=== PATIENT | male | born 1985 | race Caucasian/White ===

== ENCOUNTER 2017-06-14 00:49 | Emergency (ER) | payer OTHER ==
[2017-06-14 01:19] LABS: #Basophils 0.1 thou/uL (0.0-0.2); #Eosinphils 0.1 thou/uL (0.0-0.7); #Lymphocytes 2.5 thou/uL (1.20-3.40); #Monocytes 0.5 thou/uL (0.11-0.59); %Basophils 0.7 % (0.0-1.0); %Monocytes 5.9 % (0.0-10.0); Hematocrit 47.5 % (42.0-52.0); Mean Platelet Volume 7.6 fL (7.4-10.4); Red Blood Cell (RBC) Count 5.18 mill/uL (4.70-6.10); White Blood Cell (WBC) Count 9.1 thou/uL (4.8-10.8)
[2017-06-14 01:45] LABS: ALT (SGPT) 19 U/L (8-55); AST (SGOT) 22 U/L (5-34); Acetaminophen Less than 6.0 mcg/mL (10.0-30.0); Alkaline Phosphatase 40 U/L (40-150); Anion Gap 12 mmol/L (10-20); BUN (Urea Nitrogen) 10 mg/dL (8.9-20.6); Bilirubin, Total 0.4 mg/dL (0.2-1.2); CK (CPK) 134 U/L (30-200); Calc. Creatinine Clearance 0 mL/min (70-130); Calcium 8.7 mg/dL (7.8-10.44); Carbon Dioxide 23 mmol/L (22-29); Chloride 106 mmol/L (98-107); Estimated GFR-MDRD Greater than 90; Globulin 2.1 g/dL (2.4-3.5); Protein, Total 5.9 g/dL (6.0-8.3); Salicylate Less than 8.0 mg/dL (15.0-30.0)
[2017-06-14] MEDS ORDERED: Multivitamins, Adult 10 ML, Thiamine HCl 100 MG, Folic Acid 1 MG in Dextrose 5 %-0.45 %... IV SCH ×4 (02:00)
[2017-06-14 02:44] LABS: Bilirubin Negative (Negative); Blood, Urine Negative (Negative); Glucose, Urine (Dipstick) Negative (Negative); Ketone, Urine Negative (Negative); Nitrite Negative (Negative); Protein, Urine (Dipstick) Negative (Neg-Trace); Urobilinogen 0.2 mg/dL (0.2-1.0)
[2017-06-14 02:55] LABS: Amphetamine Not Detected (NotDetected); Methadone Not Detected (NotDetected); Methamphetamine Not Detected (NotDetected)
== END 2017-06-14 10:30 | disposition home or self-care (01) ==
LOC: ERS 00:49
DX: F10.129 Alcohol abuse with intoxication, unspecified (principal); I25.2 Old myocardial infarction; F41.9 Anxiety disorder, unspecified; F90.9 Attention-deficit hyperactivity disorder, unspecified type; F31.9 Bipolar disorder, unspecified; F43.10 Post-traumatic stress disorder, unspecified; F17.210 Nicotine dependence, cigarettes, uncomplicated; Z79.899 Other long term (current) drug therapy; Y90.8 Blood alcohol level of 240 mg/100 ml or more
CPT/HCPCS: 36415; 80053; 80306; 80307; 81003; 82550; 84443; 85025; 94760; 96365; 96366; 99406; J3411; J7042

== ENCOUNTER 2017-09-28 09:55 | Observation (INO) | payer OTHER ==
[2017-09-28 10:25] LABS: #Basophils 0.1 thou/uL (0.0-0.2); #Eosinphils 0.1 thou/uL (0.0-0.7); #Lymphocytes 2.4 thou/uL (1.20-3.40); #Monocytes 0.4 thou/uL (0.11-0.59); #Neutrophils 4.2 thou/uL (1.40-6.50); %Eosinophils 1.7 % (0.0-10.0); %Lymphocytes 33.7 % (21.0-51.0); %Neutrophils 58.6 % (42.0-75.0); Hemoglobin 14.8 g/dL (14.0-18.0); Mean Corpuscular HGB CONC 33.6 g/dL (32.0-36.0); Mean Corpuscular Hemoglobin 31.7 pg (27.0-31.0); Mean Corpuscular Volume 94.4 fl (80.0-94.0); Mean Platelet Volume 7.4 fL (7.4-10.4); Platelet Count 243 thou/uL (130-400); RBC Distribution Width 12.3 % (11.5-14.5); Red Blood Cell (RBC) Count 4.65 mill/uL (4.70-6.10); White Blood Cell (WBC) Count 7.1 thou/uL (4.8-10.8)
[2017-09-28 10:48] LABS: ALT (SGPT) 14 U/L (8-55); AST (SGOT) 21 U/L (5-34); Acetaminophen Less than 6.0 mcg/mL (10.0-30.0); Albumin 3.8 g/dL (3.5-5.0); Alcohol Less than 10 mg/dL (Less than 10); Alkaline Phosphatase 60 U/L (40-150); Anion Gap 12 mmol/L (10-20); BUN (Urea Nitrogen) 8 mg/dL (8.9-20.6); Bilirubin, Total 0.8 mg/dL (0.2-1.2); Calc. Creatinine Clearance 0 mL/min (70-130); Carbon Dioxide 27 mmol/L (22-29); Chloride 107 mmol/L (98-107); Estimated GFR-MDRD Greater than 90; Globulin 2.7 g/dL (2.4-3.5); Glucose 94 mg/dL (70-105); Potassium 3.9 mmol/L (3.5-5.1); Protein, Total 6.5 g/dL (6.0-8.3); Salicylate Less than 8.0 mg/dL (15.0-30.0); Sodium 142 mmol/L (136-145)
[2017-09-28 12:24] LABS: Amphetamine Not Detected (NotDetected); Benzodiazepine Screen Detected (NotDetected); Cocaine Metabolite Screen Detected (NotDetected); Medtox Reader # READER 1; Methamphetamine Detected (NotDetected); Opiate Screen Not Detected (NotDetected); Phencyclidine (PCP) Not Detected (NotDetected); THC/Cannabinoid Screen Not Detected (NotDetected)
[2017-09-28 12:25] LABS: Barbiturates Screen Not Detected (NotDetected); Medtox Control Line Valid? VALID (VALID); Methadone Not Detected (NotDetected); Oxycodone Screen Not Detected (NotDetected); Tricyclic Screen Not Detected (NotDetected)
[2017-09-28] MEDS ORDERED: Ondansetron HCl/PF 4 MG/2 ML Vial IVP PRN ×2 (15:58→16:10)
[2017-09-28] MEDS ORDERED: Ondansetron ODT 4 MG TAB SL PRN (15:58)
[2017-09-28] MEDS ORDERED: Acetaminophen 325 MG TAB PO PRN (15:58)
[2017-09-28] MEDS ORDERED: Dextrose 5 %-0.45 % NaCl 1,000 ML IV SCH (16:00)
[2017-09-28] MEDS ORDERED: Bisacodyl 10 MG SUPP PR PRN (16:10)
[2017-09-28] MEDS ORDERED: Acetaminophen 650 MG Suppository PR PRN (16:10)
[2017-09-28] MEDS ORDERED: Ondansetron ODT 4 MG TAB PO PRN (16:10)
[2017-09-28] MEDS ORDERED: Lorazepam 2 MG/ML VIAL SLOW IVP PRN ×2 (16:13)
[2017-09-28 17:01] VITALS: BMI 22.7
[2017-09-28] MEDS ORDERED: Multivitamins, Adult 10 ML, Thiamine HCl 100 MG, Folic Acid 1 MG in Dextrose 5 %-0.45 %... IV SCH (18:00)
[2017-09-28] MEDS: Famotidine 20 MG TAB PO SCH (23:35)
[2017-09-28] MEDS: Docusate 100 MG CAP PO SCH (23:35)
[2017-09-29] MEDS ORDERED: Dextrose 5 %-0.45 % NaCl 1,000 ML IV SCH (02:00)
--- NOTE | 2017-09-29 06:55 | HP-2 ---
DATE OF ENCOUNTER: 09/28/2017 TIME OF ENCOUNTER: 1453 hours. ATTENDING: Rudy Medley MD PRIMARY CARE PHYSICIAN: None. [facility]. CHIEF COMPLAINT: Seizure, neck pain, and ear pain. HISTORY OF PRESENT ILLNESS: A 32-year-old male with past medical history difficult to obtain due to patient's somnolence and altered mental status; however, by review of records, the patient has a history of depression, anxiety, and alcohol abuse. He was brought to the ED after EMS picked him up from home after a supposed intentional overdose that had been occurring over the last 2 days prior to arrival. Per EMS report, patient had suicidal ideation ; however, this was unable to be confirmed during the time of my encounter due to the patient's somnolence. Per EMS, the patient was found to have multiple pill bottles surrounding him when he was found down at home including bottle of Xanax, Zyprexa, fluoxetine, BuSpar, olanzapine, and naltrexone. 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 The patient is oriented to self and place, but is not able to contribute any history to his medical conditions at this time. In the ED, the patient was given 2 liters normal saline and continuous monitoring, but after 5 hours was not noted to be arousable. PAST MEDICAL HISTORY: Significant for alcohol abuse status post DT and prior intubation. PAST SURGICAL HISTORY: Unable to obtain. MEDICATIONS: None. ALLERGIES: Per prior history, MORPHINE. SOCIAL HISTORY: Includes excessive alcohol intake per history as well as cocaine, methamphetamine, and marijuana abuse as well as prescription drug abuse and occasional tobacco use. REVIEW OF SYSTEMS: Unable to be performed due to patient's altered mental status. PHYSICAL EXAMINATION: VITAL SIGNS: T-max 97.8, respirations 16, heart rate 78, blood pressure 102/72 , O2 sat 100% on room air, weight 73 kilograms. GENERAL: No acute distress, asleep, very difficult to arouse and oriented x2. EYES: Pupils are constricted, but equally reactive and sluggish. Conjunctivae are nonicteric. ENT: He has dry mucous membranes. CARDIOVASCULAR: Regular rate and rhythm. No murmurs or gallops noted. Pulses are equal in all extremities. Respiratory status, nonlabored. LUNGS: Clear to auscultation bilaterally. ABDOMEN: Soft, nontender, nondistended. EXTREMITIES: No edema, no cyanosis. SKIN: Shows no rashes, ulcers, or lesions. NEUROLOGIC: No obvious focal deficits; however, the patient is somnolent but arousable. GCS of 12, E2, V5, M5. PSYCHIATRIC: Inappropriate due to poor judgment and insight. LABORATORY DATA: CBC: White blood cells 7.1, hemoglobin 14.8, hematocrit 43.9 , MCV 94.4, platelets 243. CMP: Sodium 142, potassium 3.9, chloride 107, bicarbonate 27, BUN 8, creatinine 0.92, glucose 94. GFR greater than 90. Calcium 9, protein 6.5, albumin 3.8, bilirubin 0.8, AST 21, ALT 14, alkaline phosphatase 60. UDS significant for positive cocaine, methamphetamine, and benzodiazepines. Serum drug screen is negative for alcohol, acetaminophen, or salicylate. Magnesium 2.2. IMAGING: EKG shows normal sinus rhythm with a QTc of 444. Chest x-ray is none performed. ASSESSMENT AND PLAN: A 32-year-old male with past medical history significant for depression and alcohol abuse who presents with: 1. Acute toxic encephalopathy. UDS positive for polysubstance abuse as well as history of psych medication overdose. Therefore, we will continue to monitor with continued somnolence and we would continue to monitor the patient on telemetry and observe him overnight. We will repeat EKG in the morning to ensure no further QT prolongation, also check an a.m. mag as well as electrolytes to ensure these remained stable. N.p.o. at this time pending. The patient awakening more as well as will need to pass the dysphagia screen. Here the patient had some IV fluids of D5 half NS at 125 after rebolused a banana bag. 2. Suicidal ideation. After patient is medically cleared, we will consult an [facility] for likely placement. Continue the patient on suicide precautions at this time. 3. Alcohol abuse. Place the patient on ASE protocol. We will not initiate any schedule benzodiazepines at this time given patient's current somnolent as well as UDS positive for benzos; however, we will have p.r.n. Ativan available for seizures. 4. Depression, likely contributing to the above. Pending likely placement. 5. Polysubstance abuse, counseled regarding cessation likely contributing to all the above. 6. Tobacco abuse, counseled regarding cessation, offer nicotine transdermal patch. 7. Status: OBS. Anticipate 1-day hospital stay with likely transfer to psychiatric unit upon becoming medically cleared. History and physical as well as management were discussed with the attending, Dr. Medley who agrees with the above assessment and plan. ASHISH
--- NOTE | 2017-09-29 07:33 | PDOC.FM ---
- Subjective Subjective: Pt arousable. Does not respond to questions very well. No acute concerns at this time. Pt sleeping and resting. Pt denies any chest pain, sob. Denies any fever or chills. Tyson any muscle pain or cramps. no acute concerns at this time. - Objective MAR Reviewed: Yes Vital Signs & Weight: Vital Signs (12 hours) Temp Pulse Resp BP BP Pulse Ox 09/29/17 04:00 97.4 F L 86 20 100/54 L 100/54 L 94 L 09/29/17 00:30 92/64 09/29/17 00:00 96.8 F L 84 20 92/64 98 09/28/17 19:35 102/63 Weight Weight 76.839 kg I&O: 09/28/17 09/29/17 09/30/17 06:59 06:59 06:59 Intake Total 1228 Output Total 1000 Balance 228 Result Diagrams: 09/28/17 10:18 09/28/17 10:18 <Don Holbrook - Last Filed: 09/29/17 07:29> - Objective Vital Signs & Weight: Vital Signs (12 hours) Temp Pulse Resp BP BP Pulse Ox 09/29/17 04:00 97.4 F L 86 20 100/54 L 100/54 L 94 L 09/29/17 00:30 92/64 09/29/17 00:00 96.8 F L 84 20 92/64 98 Weight Weight 169 lb 6.4 oz I&O: 09/28/17 09/29/17 09/30/17 06:59 06:59 06:59 Intake Total 1228 Output Total 1000 Balance 228 Result Diagrams: 09/28/17 10:18 09/28/17 10:18 <Rudy Medley - Last Filed: 09/29/17 09:37> Phys Exam - Physical Examination Constitutional: NAD HEENT: PERRLA, moist MMs Neck: no nodes, supple, full ROM Respiratory: no wheezing, no rales, no rhonchi Cardiovascular: RRR, no significant murmur, no rub Gastrointestinal: soft, non-tender, no distention, positive bowel sounds Musculoskeletal: no edema, pulses present Neurological: non-focal, normal sensation, moves all 4 limbs Lymphatic: no nodes Skin: no rash, normal turgor, cap refill <2 seconds <Don Holbrook - Last Filed: 09/29/17 07:29> Dx/Plan (1) Encephalopathy Code(s): G93.40 - ENCEPHALOPATHY, UNSPECIFIED Status: Acute (2) Suicidal ideation Code(s): R45.851 - SUICIDAL IDEATIONS Status: Acute (3) Polysubstance abuse Code(s): F19.10 - OTHER PSYCHOACTIVE SUBSTANCE ABUSE, UNCOMPLICATED Status: Acute (4) Tobacco abuse Code(s): Z72.0 - TOBACCO USE Status: Acute (5) Alcohol abuse Code(s): F10.10 - ALCOHOL ABUSE, UNCOMPLICATED Status: Acute - Plan Plan: Acute Toxic encephalopathy -UDS positive for polysubstance abuse and recently had an intentional suicide attempt with psych medication overdose. Found to have multiple pill bottles surrounding him with xanax, zyprexa, fluoxetine, buspar olanzapine and naltrexone -Vital signs have been stable -On telemetry monitoring. Monitoring for prolonged QT -Awakeing. On IV fluids for now Suicidal Ideation -MHMR consult once medically cleared. Has sitter now Alcohol Abuse -ASE protocol. Will not give benzos as pt is somnolent -Ativan for seizures Depression -MHMR consult Polysubstance Abuse -counseled on effects and need to quit Tobacco abuse -Nicotine patch PRN -Counselled on cessation <Don Holbrook - Last Filed: 09/29/17 07:29> Attending Addendum - Attending Addendum I personally evaluated the patient and discussed the management with Dr. Holbrook I agree with the History, Examination, Assessment and Plan documented above. Repeated EKG. Will get patient up and moving and eat breakfast. Once he seems to be doing fine will consult [facility]MR once medically cleared for assessment. <Rudy Medley - Last Filed: 09/29/17 09:37>
[2017-09-29] MEDS ORDERED: FLU VACC QS2017-18 36 mo. & older 0.5 ML SYRINGE IM ONE (09:00)
[2017-09-29] MEDS: Docusate 100 MG CAP PO SCH ×2 (09:25→20:50)
[2017-09-29] MEDS: Famotidine 20 MG TAB PO SCH ×2 (09:25→20:50)
[2017-09-29 10:05] LABS: Anion Gap 12 mmol/L (10-20); BUN (Urea Nitrogen) 7 mg/dL (8.9-20.6); Calc. Creatinine Clearance 134 mL/min (70-130); Calcium 8.9 mg/dL (7.8-10.44); Carbon Dioxide 26 mmol/L (22-29); Chloride 108 mmol/L (98-107); Estimated GFR-MDRD Greater than 90; Glucose 82 mg/dL (70-105); Magnesium 1.9 mg/dL (1.6-2.6); Potassium 3.8 mmol/L (3.5-5.1); Sodium 142 mmol/L (136-145)
--- NOTE | 2017-09-29 10:21 | RAD ---
CHEST 1 VIEW: HISTORY: Dyspnea. COMPARISON: 05/14/16. FINDINGS: Cardiac silhouette is magnified by projection. Pulmonary vasculature is unremarkable. There is mini mal bibasilar atelectasis. There is no lobar consolidation or evidence of pneumothorax. Cardiac mon itor leads overlie the chest. IMPRESSION: No active cardiopulmonary abnormalities are demonstrated. POS: [facility]
--- NOTE | 2017-09-29 13:06 | PDOC.EVN ---
Event Note - Event Note Event Note: Patient has done well. Magnesium, Potassium, kidneys and liver normal. CXR no acute process. EKG repeat had QTc <450 and there was no QT prolongation noted on telemetry during his stay and no seizures. His BP has remained stable, likely his normal BP as he is small. Patient AOx4. Comfortable. Discussed with poison control. OK for medical clearance. Will consult [facility].
--- NOTE | 2017-09-30 06:06 | PDOC.FM ---
- Subjective Subjective: Pt is alert and orientedx4. Answers questions appropriately. No sign of confusion or lethargy at this time. Denies any acute events overnight. Denies any chest pain SOB. Says he hasn't been up walking yet nely he is naked. - Objective MAR Reviewed: Yes Vital Signs & Weight: Vital Signs (12 hours) Temp Pulse Resp BP BP Pulse Ox 09/30/17 04:00 97.8 F 62 18 99/58 L 99/58 L 98 09/29/17 19:30 97.4 F L 92 16 106/57 L 106/57 L 96 Weight Weight 76.657 kg I&O: 09/28/17 09/29/17 09/30/17 06:59 06:59 06:59 Intake Total 1228 Output Total 1000 Balance 228 Result Diagrams: 09/28/17 10:18 09/29/17 09:35 EKG Reviewed by me: Yes <Don Holbrook - Last Filed: 09/30/17 08:23> - Objective Vital Signs & Weight: Vital Signs (12 hours) Temp Pulse Resp BP BP Pulse Ox 09/30/17 12:00 99 F 78 16 104/56 L 104/56 L 95 09/30/17 10:25 98 F 87 14 109/76 09/30/17 08:00 98 F 87 14 109/76 95 09/30/17 07:50 98.3 F 87 14 109/76 95 Weight Weight 76.657 kg I&O: 09/29/17 09/30/17 10/01/17 06:59 06:59 06:59 Intake Total 1228 960 Output Total 1000 700 Balance 228 260 Result Diagrams: 09/28/17 10:18 09/29/17 09:35 <Ameena Tiwari - Last Filed: 09/30/17 16:54> Phys Exam - Physical Examination Constitutional: NAD HEENT: PERRLA, moist MMs Neck: no nodes, supple, full ROM Respiratory: no wheezing, no rales, no rhonchi, clear to auscultation bilateral Cardiovascular: RRR, no significant murmur, no rub Gastrointestinal: soft, non-tender, no distention, positive bowel sounds Musculoskeletal: no edema, pulses present Neurological: non-focal, normal sensation, moves all 4 limbs Lymphatic: no nodes Psychiatric: normal affect, A&O x 3 Skin: no rash, normal turgor, cap refill <2 seconds <Don Holbrook - Last Filed: 09/30/17 08:23> Dx/Plan (1) Encephalopathy Code(s): G93.40 - ENCEPHALOPATHY, UNSPECIFIED Status: Acute (2) Suicidal ideation Code(s): R45.851 - SUICIDAL IDEATIONS Status: Acute (3) Polysubstance abuse Code(s): F19.10 - OTHER PSYCHOACTIVE SUBSTANCE ABUSE, UNCOMPLICATED Status: Acute (4) Tobacco abuse Code(s): Z72.0 - TOBACCO USE Status: Acute (5) Alcohol abuse Code(s): F10.10 - ALCOHOL ABUSE, UNCOMPLICATED Status: Acute - Plan Plan: cute Toxic encephalopathy -UDS positive for polysubstance abuse and recently had an intentional suicide attempt with psych medication overdose. Found to have multiple pill bottles surrounding him with xanax, zyprexa, fluoxetine, buspar olanzapine and naltrexone -Vital signs have been stable -On telemetry monitoring. Monitoring for prolonged QT. None seen at this time -Awakeing. -Tolerating PO Suicidal Ideation -MHMR consult once medically cleared. Has sitter now Alcohol Abuse -ASE protocol. Will not give benzos as pt is somnolent -Ativan for seizures Depression -MHMR consult Polysubstance Abuse -counseled on effects and need to quit Tobacco abuse -Nicotine patch PRN -Counselled on cessation <Don Holbrook - Last Filed: 09/30/17 08:23> Attending Addendum - Attending Addendum I personally evaluated the patient and discussed the management with Dr. Holbrook. I agree with the History, Examination, Assessment and Plan documented above with any addition or exceptions noted below. The patient is doing well. Will get re-evaluated by MHMR and likely discharge home. <Ameena Tiwari - Last Filed: 09/30/17 16:54>
[2017-09-30 12:21] VITALS: BP 104/56
[2017-09-30 12:22] VITALS: TEMP 99
--- NOTE | 2017-10-01 09:30 | DIS-2 ---
DATE OF ADMISSION: 09/28/2017 DATE OF DISCHARGE: 09/30/2017 ADMITTING ATTENDING: Rudy Medley M.D. DISCHARGE ATTENDING: Ameena Tiwari M.D. RESIDENT: Don Holbrook, PGY-1 CONSULTATIONS: None. PROCEDURES: None. Had a chest x-ray, which showed no active cardiopulmonary abnormalities demonstrated. PRIMARY DIAGNOSES: 1. Acute toxic encephalopathy. 2. Suicidal ideation. 3. Alcohol abuse. 4. Depression. 5. Polysubstance abuse. 6. Tobacco abuse. DISCHARGE MEDICATIONS: We did not send him home on any of his medications. We did not continue any of his medications as he tried using them for suicide attempt, which led to his admission. HISTORY OF PRESENT ILLNESS AND BRIEF HOSPITAL COURSE: This is a 32-year-old male with a past medical history little difficult to obtain on admission due to somnolence. He was found down with multiple pill bottles of Xanax, Zyprexa, fluoxetine, BuSpar, olanzapine, and naltrexone. We called Poison Control. 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 His initial EKG overnight showed a QT of 472. He never was hypotensive, never in seizures. He checked his labs. Labs were normal. His magnesium was 2.2, would trend down to 1.9 the next day. No other lab abnormalities are noted. We did do a urine drug screen, which was positive for meth, benzodiazepines and cocaine. Plasma alcohol level was less than 10. At this time, we admitted him for observation. He was very tired. We continued to monitor him until the next day until he is medically cleared. Repeat EKG showed a normal QT. He is alert and oriented x3. We consulted [facility]. At that time, they medically cleared him, but it is difficult for him to answer questions, so they mentioned that maybe he was still tired. I think it was due to him just being a punk and not answering questions, so at this time, we kept him to monitor and [facility] one time to see him on Saturday. At this time, we checked him again, he was alert and oriented x3 when I saw him, answering questions appropriately. He did not show any signs of depression or anything. We called Poison Control. They cleared him. We consulted [facility] one time to see him. At this time, he started to be a little bit tricky. He called his mother and said that he was allowed to be discharged , and I had never seen him and told him that he could be discharged. I told him he could not be discharged until [facility] had seen him. His mother came up and at this time, he told the sitter in the room which he had the whole time that he was leaving [facility] as [facility] had cleared him the day before and he was exercising his rights and at this time he left [place]. DISPOSITION: Stable. DISCHARGE INSTRUCTIONS: 1. Location: AMA, home. 2. Activity: As tolerated. 3. Diet: Regular diet. 3. Followup: Will need to follow up with his primary care physician and counseling to get started on his psych medications. ASHISH
--- NOTE | 2017-10-05 18:04 | EKG ---
Test Reason : OD Blood Pressure : / mmHG Vent. Rate : 079 BPM Atrial Rate : 079 BPM P-R Int : 128 ms QRS Dur : 098 ms QT Int : 388 ms P-R-T Axes : 022 061 029 degrees QTc Int : 444 ms Normal sinus rhythm Normal ECG Confirmed by LISETTE ROSENBERG, RITA ([id number]), loan expeditor GIULIANO VYAS ([id number]) on 10/05/2017 6:03:23 PM Referred By: Confirmed By:RITA KNOX MD
--- NOTE | 2017-12-01 08:36 | EKG ---
Test Reason : ROUTINE Blood Pressure : / mmHG Vent. Rate : 064 BPM Atrial Rate : 064 BPM P-R Int : 116 ms QRS Dur : 092 ms QT Int : 414 ms P-R-T Axes : -06 069 045 degrees QTc Int : 427 ms Normal sinus rhythm Normal ECG When compared with ECG of 15-JAN-2016 13:12, (Unconfirmed) Vent. rate has decreased BY 32 BPM Confirmed by MAUREEN ROSENBERG, EMILIA ([id number]) on 12/01/2017 8:35:48 AM Referred By: PHILIP CHAHAL Confirmed By:EMILIA REDDY MD
== END 2017-09-30 15:00 | disposition left against medical advice (07) ==
LOC: ERS 09:55 → 2NO 16:08
PROVIDERS: ADMIT Family Medicine; ATTEND Family Medicine
DX: G92 Toxic encephalopathy (principal); R45.851 Suicidal ideations; F10.10 Alcohol abuse, uncomplicated; F32.9 Major depressive disorder, single episode, unspecified; F17.200 Nicotine dependence, unspecified, uncomplicated; F15.10 Other stimulant abuse, uncomplicated; F14.10 Cocaine abuse, uncomplicated; F12.10 Cannabis abuse, uncomplicated; Z88.5 Allergy status to narcotic agent; Z98.890 Other specified postprocedural states
CPT/HCPCS: 36415; 71045; 80048; 80053; 80306; 80307; 83735; 85025; 93005; 93010; 96360; 96361; 96365; 96366; G0378; J3411; J7042

== ENCOUNTER 2017-11-25 16:40 | Emergency (ER) | payer OTHER ==
[2017-11-25 17:05] LABS: Bilirubin Negative (Negative); Blood, Urine Negative (Negative); Clarity CLEAR (Clear); Glucose, Urine (Dipstick) Negative (Negative); Leukocyte Negative (Negative); Nitrite Negative (Negative); Protein, Urine (Dipstick) Negative (Neg-Trace); Specific Gravity, Urine 1.009 (1.002-1.036); Urobilinogen 0.2 mg/dL (0.2-1.0)
[2017-11-25 17:15] LABS: Amphetamine Not Detected (NotDetected); Barbiturates Screen Not Detected (NotDetected); Benzodiazepine Screen Detected (NotDetected); Cocaine Metabolite Screen Detected (NotDetected); Medtox Control Line Valid? VALID (VALID); Medtox Reader # READER 4; Methadone Not Detected (NotDetected); Methamphetamine Not Detected (NotDetected); Opiate Screen Not Detected (NotDetected); Oxycodone Screen Not Detected (NotDetected); Phencyclidine (PCP) Not Detected (NotDetected); THC/Cannabinoid Screen Not Detected (NotDetected); Tricyclic Screen Not Detected (NotDetected)
[2017-11-25 17:17] LABS: #Basophils 0.1 thou/uL (0.0-0.2); #Eosinphils 0.1 thou/uL (0.0-0.7); #Lymphocytes 2.8 thou/uL (1.20-3.40); #Monocytes 0.5 thou/uL (0.11-0.59); #Neutrophils 4.7 thou/uL (1.40-6.50); %Eosinophils 1.5 % (0.0-10.0); %Monocytes 6.5 % (0.0-10.0); Hemoglobin 15.1 g/dL (14.0-18.0); Mean Corpuscular HGB CONC 34.4 g/dL (32.0-36.0); Mean Corpuscular Hemoglobin 31.2 pg (27.0-31.0); Mean Corpuscular Volume 90.7 fl (80.0-94.0); Mean Platelet Volume 7.5 fL (7.4-10.4); Platelet Count 269 thou/uL (130-400); RBC Distribution Width 12.3 % (11.5-14.5); Red Blood Cell (RBC) Count 4.83 mill/uL (4.70-6.10); White Blood Cell (WBC) Count 8.2 thou/uL (4.8-10.8)
[2017-11-25 17:46] LABS: ALT (SGPT) 32 U/L (8-55); AST (SGOT) 27 U/L (5-34); Acetaminophen Less than 6.0 mcg/mL (10.0-30.0); Albumin 4.3 g/dL (3.5-5.0); Alcohol 89 mg/dL (Less than 10); Alkaline Phosphatase 60 U/L (40-150); Anion Gap 14 mmol/L (10-20); BUN (Urea Nitrogen) 10 mg/dL (8.9-20.6); Bilirubin, Total 1.1 mg/dL (0.2-1.2); CK (CPK) 364 U/L (30-200); Calc. Creatinine Clearance 0 mL/min (70-130); Carbon Dioxide 26 mmol/L (22-29); Chloride 105 mmol/L (98-107); Estimated GFR-MDRD Greater than 90; Globulin 2.6 g/dL (2.4-3.5); Glucose 88 mg/dL (70-105); Potassium 3.8 mmol/L (3.5-5.1); Protein, Total 6.9 g/dL (6.0-8.3); Salicylate Less than 8.0 mg/dL (15.0-30.0); Sodium 141 mmol/L (136-145)
== END 2017-11-26 01:38 ==
LOC: ERS 16:40
DX: T42.4X2A Poisoning by benzodiazepines, intentional self-harm, initial encounter (principal); I25.2 Old myocardial infarction; F17.210 Nicotine dependence, cigarettes, uncomplicated; F41.9 Anxiety disorder, unspecified; F31.9 Bipolar disorder, unspecified; F43.10 Post-traumatic stress disorder, unspecified; Z79.899 Other long term (current) drug therapy
CPT/HCPCS: 36415; 80053; 80306; 80307; 81003; 82550; 84443; 85025; 93005; 96360

== ENCOUNTER 2017-11-29 02:35 | Inpatient (IN) | payer OTHER ==
[2017-11-29 03:17] LABS: #Basophils 0.1 thou/uL (0.0-0.2); #Eosinphils 0.1 thou/uL (0.0-0.7); #Lymphocytes 2.3 thou/uL (1.20-3.40); #Monocytes 0.8 thou/uL (0.11-0.59); #Neutrophils 7.7 thou/uL (1.40-6.50); %Basophils 0.5 % (0.0-1.0); %Eosinophils 0.5 % (0.0-10.0); %Lymphocytes 21.1 % (21.0-51.0); %Monocytes 7.6 % (0.0-10.0); %Neutrophils 70.3 % (42.0-75.0); Hemoglobin 15.6 g/dL (14.0-18.0); Mean Corpuscular HGB CONC 36.2 g/dL (32.0-36.0); Mean Corpuscular Hemoglobin 32.5 pg (27.0-31.0); Mean Platelet Volume 7.2 fL (7.4-10.4); Platelet Count 287 thou/uL (130-400); RBC Distribution Width 12.4 % (11.5-14.5); Red Blood Cell (RBC) Count 4.79 mill/uL (4.70-6.10); White Blood Cell (WBC) Count 10.9 thou/uL (4.8-10.8)
[2017-11-29 03:17] LABS: Bilirubin Negative (Negative); Blood, Urine Negative (Negative); Clarity CLOUDY (Clear); Glucose, Urine (Dipstick) Negative (Negative); Leukocyte Trace (Negative); Nitrite Negative (Negative); Protein, Urine (Dipstick) 100 mg/dL (Neg-Trace); Specific Gravity, Urine 1.026 (1.002-1.036); Urobilinogen 0.2 mg/dL (0.2-1.0); pH, Urine 6.5 (5.0-9.0)
[2017-11-29 03:19] LABS: Bacteria/HPF None Seen HPF (None Seen); Hyaline Casts/LPF 7-10 HYALINE CAST LPF (0-3 Hyaline); Pathc Cast-AUWi Flag 1.01 (0-2.49); Squamous Epithelial 0-3 HPF (0-3)
[2017-11-29 03:30] LABS: Amphetamine Detected (NotDetected); Barbiturates Screen Detected (NotDetected); Benzodiazepine Screen Detected (NotDetected); Cocaine Metabolite Screen Not Detected (NotDetected); Medtox Control Line Valid? VALID (VALID); Medtox Reader # READER 1; Methadone Not Detected (NotDetected); Methamphetamine Detected (NotDetected); Opiate Screen Not Detected (NotDetected); Oxycodone Screen Not Detected (NotDetected); Phencyclidine (PCP) Not Detected (NotDetected); THC/Cannabinoid Screen Not Detected (NotDetected); Tricyclic Screen Not Detected (NotDetected)
[2017-11-29 03:40] LABS: ALT (SGPT) 25 U/L (8-55); AST (SGOT) 49 U/L (5-34); Albumin 4.8 g/dL (3.5-5.0); Alkaline Phosphatase 69 U/L (40-150); Anion Gap 17 mmol/L (10-20); BUN (Urea Nitrogen) 10 mg/dL (8.9-20.6); Bilirubin, Total 1.6 mg/dL (0.2-1.2); Calc. Creatinine Clearance 0 mL/min (70-130); Calcium 10.3 mg/dL (7.8-10.44); Carbon Dioxide 25 mmol/L (22-29); Chloride 104 mmol/L (98-107); Estimated GFR-MDRD Greater than 90; Glucose 86 mg/dL (70-105); Potassium 3.6 mmol/L (3.5-5.1); Protein, Total 7.8 g/dL (6.0-8.3); Sodium 142 mmol/L (136-145)
[2017-11-29 03:41] LABS: Acetaminophen Less than 6.0 mcg/mL (10.0-30.0); Alcohol Less than 10 mg/dL (Less than 10); CK (CPK) 2494 U/L (30-200); Salicylate Less than 8.0 mg/dL (15.0-30.0)
[2017-11-29] MEDS ORDERED: Ziprasidone 20 MG CAP ONE ×2 (05:46)
[2017-11-29] MEDS ORDERED: Ondansetron ODT 4 MG TAB PO PRN (06:56)
[2017-11-29] MEDS ORDERED: Diabetic Tussin 200 MG/10 ML UDCUP PO PRN (06:56)
[2017-11-29] MEDS ORDERED: Loperamide HCl 2 MG CAP PO PRN (06:56)
[2017-11-29] MEDS ORDERED: Artificial Tears 18 DROP/0.9 ML EA EYE PRN (06:56)
[2017-11-29] MEDS ORDERED: Chloraseptic Spray 180 ml Bottle PO PRN (06:56)
[2017-11-29] MEDS ORDERED: Sodium Chloride 0.65% Nasal 44 ML BOT EA NARE PRN (06:56)
[2017-11-29] MEDS ORDERED: hydrALAZINE 20 MG/ML VIAL SLOW IVP PRN (06:56)
[2017-11-29] MEDS ORDERED: Senokot 8.6 MG TAB PO PRN (06:56)
[2017-11-29] MEDS ORDERED: Eucerin (Mineral Oil/Petrolatum,White) 30 gm Jar TOP PRN (06:56)
[2017-11-29] MEDS ORDERED: Lorazepam 2 MG/ML VIAL SLOW IVP PRN (06:56)
[2017-11-29] MEDS ORDERED: Ondansetron HCl/PF 4 MG/2 ML Vial IVP PRN (06:56)
[2017-11-29] MEDS ORDERED: Mag-Al 1200 mg/1200 mg/30 ML UDCUP PO PRN (06:56)
[2017-11-29] MEDS ORDERED: Loratadine 10 MG TAB PO PRN (06:56)
[2017-11-29] MEDS ORDERED: HYDROcodone/Acetaminophen 5/325 mg Tablet PO PRN (06:56)
[2017-11-29] MEDS ORDERED: Acetaminophen 325 MG TAB PO PRN (06:56)
[2017-11-29] MEDS ORDERED: Zolpidem Tartrate 5 MG TAB PO PRN (06:56)
[2017-11-29] MEDS ORDERED: Milk Of Magnesia 30 ML UDCUP PO PRN (06:56)
[2017-11-29] MEDS ORDERED: Sodium Chloride 0.9% 1,000 ML IV SCH (07:00)
[2017-11-29] MEDS: Famotidine 20 MG TAB PO SCH ×2 (09:58→21:19)
[2017-11-29] MEDS: Enoxaparin Sodium 40 MG/0.4 ML SYRINGE SC SCH (09:58)
[2017-11-29 11:50] LABS: CK (CPK) 5397 U/L (30-200)
[2017-11-29 11:56] LABS: Anion Gap 14 mmol/L (10-20); BUN (Urea Nitrogen) 9 mg/dL (8.9-20.6); Calc. Creatinine Clearance 0 mL/min (70-130); Calcium 8.5 mg/dL (7.8-10.44); Carbon Dioxide 22 mmol/L (22-29); Chloride 106 mmol/L (98-107); Estimated GFR-MDRD Greater than 90; Glucose 78 mg/dL (70-105); Potassium 3.3 mmol/L (3.5-5.1); Sodium 139 mmol/L (136-145)
[2017-11-29] MEDS: NS 0.9% w/ 20 MEQ KCL 1,000 ML/1,000 ML BAG IV SCH ×2 (14:43→21:26)
--- NOTE | 2017-11-29 14:52 | HP ---
PRIMARY CARE PHYSICIAN: [facility] call admission. REASON FOR ADMISSION: Rhabdomyolysis. HISTORY OF PRESENT ILLNESS: A 32-year-old male who has underlying history of anxiety, depression, paranoid schizophrenia, who came to emergency room to get psychiatric help. Lately, the patient was living in [facility]. He thinks that his place where he lives is environmentally not healthy and many other drugs addict lives surrounding him and that is why he decided to go away from them and he was living in [facility]. Unfortunately, his mother was not paying [employer] bill and after that the patient was walking all around the town. He reports that he was walking for last 2 days and he started having crampy pain in his leg. The patient was not also feeling mentally well and he was feeling guilty and he decided to go to emergency room to get help. He did not have any suicidal or homicidal ideation, but he has drug abuse history and he wanted to get rehabilitation program as well as psychiatric help. In the emergency room, the patient had routine blood test done which showed rhabdomyolysis and that is why we decided to keep this patient in hospital for hydration. Subsequently, he will need [facility] evaluation. His urine drug screen positive for amphetamine, methamphetamine, benzodiazepine, barbiturate and his alcohol level less than 10. He reports that he abused methamphetamine the day before yesterday and he drank vodka last night. REVIEW OF SYSTEMS: Please see my HPI for pertinent positive and negative. All other review of system reviewed and negative except as mentioned in the HPI. Constitutional: Weight loss or gain, ability to conduct usual activities. Skin: Rash, itching. Eyes: Double vision, pain. ENT/Mouth: Nose bleeding, neck stiffness, pain, tenderness. Cardiovascular: Palpitations, dyspnea on exertion, orthopnea. Respiratory: Shortness of breath, wheezing, cough, hemoptysis, fever or night sweats. Gastrointestinal: Poor appetite, abdominal pain, heartburn, nausea, vomiting, constipation, or diarrhea. Genitourinary: Urgency, frequency, dysuria, nocturia. Musculoskeletal: Pain, swelling. Neurologic/Psychiatric: Anxiety, depression. Allergy/Immunologic: Skin rash, bleeding tendency. PAST MEDICAL HISTORY: Alcoholism, polysubstance abuse. PAST SURGICAL HISTORY: Reviewed and negative. PAST PSYCHIATRIC HISTORY: Anxiety, depression, attention deficit hyperactivity disorder, bipolar disorder, posttraumatic stress disorder. SOCIAL HISTORY: The patient drinks alcohol every week. He also abuses cocaine , marijuana as well as methamphetamine. He also smoke cigars variable number everyday basis. FAMILY HISTORY: No strong family history of premature coronary artery disease, stroke or cancer. ALLERGIES: No known drug allergy. CURRENT HOME MEDICATIONS: The patient is not taking any prescribed or non- prescribed medication at this point. EMERGENCY ROOM COURSE: The patient has been given IV fluid in the emergency room, the patient was given Geodon 20 mg p.o. PHYSICAL EXAMINATION: VITAL SIGNS: On arrival to emergency room, blood pressure 147/105, pulse 118, respiratory rate 18, temperature 97.8, saturation 99% on room air. Weight 73 kilograms. GENERAL: The patient is currently alert, awake, no obvious acute distress. HEAD: Normocephalic, atraumatic. EYES: Pupils round, reactive to light. Extraocular muscle intact. ENT: Oropharynx within normal limits. Moist mucous membranes. No oral lesion , no pharyngeal erythema, no exudate. NECK: Supple, no JVD, no thyromegaly, no carotid bruit, no jugular venous distention. LUNGS: Clear to auscultation without any rhonchi or rales. CARDIAC: S1, S2 regular without any significant murmur. ABDOMEN: Soft, bowel sounds present, nontender, nondistended. No organomegaly , no mass, no suprapubic tenderness. BACK: Unremarkable, no CVA tenderness. EXTREMITIES: Upper extremity: Passive movements of all joints are normal. Lower extremities: No edema. Good peripheral pulsation. SKIN: No skin rash. HEMATOLOGICAL: No lymphadenopathy. PSYCHIATRIC: The patient is anxious. He has racing thoughts. NEUROLOGIC: Nonfocal examination. The patient moves all 4 limbs. Plantar bilateral flexor. SIGNIFICANT LABS: EKG showing sinus arrhythmia. CBC: WBC 10.9, hemoglobin 15.6, platelet 287. BMP: Sodium 142, potassium 3.3, chloride 104, carbon dioxide 25, BUN 10, creatinine 0.84, glucose 86, calcium 10.3. LFT: AST 49, ALT 25, alkaline phosphatase 69, albumin 4.8. TSH 2.97. CK 5397. Urinalysis: Leukocyte esterase trace. Serum drug screen negative. Urine drug screen positive for barbiturate, amphetamine, methamphetamine, and benzodiazepine. ASSESSMENT AND PLAN: 1. Acute rhabdomyolysis, likely due to his ongoing walking process for the last couple of days and muscle breakdown without any kidney failure. 2. Alcoholism. 3. Anxiety, depression, bipolar disorder, posttraumatic stress disorder with psychiatric instability, will require inpatient psychiatric placement. 4. Polysusubstance abuse PLAN: 1. Admission to medical floor. Continue IV fluid. Monitor CK level. Once the patient is medically stable, then we will consult [facility] for inpatient psychiatric placement. We will replace potassium with IV fluid. 2. Deep venous thrombosis prophylaxis with Lovenox 40 mg subcutaneously daily. 3. Gastrointestinal prophylaxis with a Pepcid 20 mg p.o. b.i.d. 4. Code status: The patient is FULL CODE. Disposition plan based on clinical course. We are expecting patient's stay in hospital more than 2 midnights. Plan of care discussed with the patient in detail. We will also provide bedside sitter for his safety while in hospital. ASHISH
[2017-11-29 17:06] VITALS: BMI 21.8
[2017-11-29 19:49] LABS: Anion Gap 13 mmol/L (10-20); BUN (Urea Nitrogen) 8 mg/dL (8.9-20.6); Calc. Creatinine Clearance 153 mL/min (70-130); Calcium 8.4 mg/dL (7.8-10.44); Carbon Dioxide 23 mmol/L (22-29); Chloride 106 mmol/L (98-107); Estimated GFR-MDRD Greater than 90; Glucose 97 mg/dL (70-105); Potassium 3.4 mmol/L (3.5-5.1); Sodium 139 mmol/L (136-145)
[2017-11-29 20:03] LABS: CK (CPK) 5668 U/L (30-200)
[2017-11-30 05:56] LABS: #Basophils 0.1 thou/uL (0.0-0.2); #Eosinphils 0.2 thou/uL (0.0-0.7); #Lymphocytes 2.1 thou/uL (1.20-3.40); #Monocytes 0.5 thou/uL (0.11-0.59); #Neutrophils 4.6 thou/uL (1.40-6.50); %Basophils 0.7 % (0.0-1.0); %Eosinophils 2.5 % (0.0-10.0); %Lymphocytes 28.2 % (21.0-51.0); %Monocytes 7.1 % (0.0-10.0); %Neutrophils 61.5 % (42.0-75.0); Hemoglobin 13.5 g/dL (14.0-18.0); Mean Corpuscular HGB CONC 33.8 g/dL (32.0-36.0); Mean Corpuscular Hemoglobin 30.6 pg (27.0-31.0); Mean Corpuscular Volume 90.7 fl (80.0-94.0); Mean Platelet Volume 7.9 fL (7.4-10.4); Platelet Count 237 thou/uL (130-400); RBC Distribution Width 12.3 % (11.5-14.5); Red Blood Cell (RBC) Count 4.42 mill/uL (4.70-6.10); White Blood Cell (WBC) Count 7.5 thou/uL (4.8-10.8)
[2017-11-30 06:06] LABS: Anion Gap 14 mmol/L (10-20); BUN (Urea Nitrogen) 5 mg/dL (8.9-20.6); Calc. Creatinine Clearance 157 mL/min (70-130); Calcium 8.9 mg/dL (7.8-10.44); Carbon Dioxide 25 mmol/L (22-29); Chloride 104 mmol/L (98-107); Estimated GFR-MDRD Greater than 90; Glucose 107 mg/dL (70-105); Potassium 3.7 mmol/L (3.5-5.1); Sodium 139 mmol/L (136-145)
[2017-11-30] MEDS: NS 0.9% w/ 20 MEQ KCL 1,000 ML/1,000 ML BAG IV SCH ×3 (06:08→23:02)
[2017-11-30 06:18] LABS: CK (CPK) 5809 U/L (30-200)
[2017-11-30] MEDS: Enoxaparin Sodium 40 MG/0.4 ML SYRINGE SC SCH (09:51)
[2017-11-30] MEDS: Famotidine 20 MG TAB PO SCH ×2 (09:51→20:59)
--- NOTE | 2017-11-30 11:43 | PDOC.PN ---
- Subjective Encounter Start Date: 11/30/17 Encounter Start Time: 08:00 Patient seen and examined. No new complaints. No overnight events - Objective Resuscitation Status: Resuscitation Status FULL:Full Resuscitation MAR Reviewed: Yes Vital Signs & Weight: Vital Signs (12 hours) Temp Pulse Resp BP Pulse Ox 11/30/17 07:45 97.8 F 69 18 11/30/17 07:17 97.8 F 69 18 133/89 99 11/30/17 03:46 97.5 F L 63 18 130/88 98 Weight Weight 160 lb 14.999 oz I&O: 11/29/17 11/30/17 12/01/17 06:59 06:59 06:59 Intake Total 4620 Output Total 3025 Balance 1595 Result Diagrams: 11/30/17 05:04 11/30/17 05:04 Phys Exam - Physical Examination Constitutional: NAD HEENT: PERRLA, moist MMs, sclera anicteric Neck: no JVD, supple Respiratory: no wheezing, no rales, no rhonchi Cardiovascular: RRR, no significant murmur, no rub Gastrointestinal: soft, non-tender, no distention, positive bowel sounds Musculoskeletal: no edema, pulses present Neurological: non-focal, normal sensation, moves all 4 limbs Psychiatric: normal affect, A&O x 3 Skin: no rash, normal turgor Dx/Plan (1) Rhabdomyolysis Code(s): M62.82 - RHABDOMYOLYSIS Status: Acute (2) Hypokalemia Code(s): E87.6 - HYPOKALEMIA Status: Resolved (3) Alcohol abuse Code(s): F10.10 - ALCOHOL ABUSE, UNCOMPLICATED Status: Chronic (4) GERD (gastroesophageal reflux disease) Code(s): K21.9 - GASTRO-ESOPHAGEAL REFLUX DISEASE WITHOUT ESOPHAGITIS Status: Chronic (5) Polysubstance abuse Code(s): F19.10 - OTHER PSYCHOACTIVE SUBSTANCE ABUSE, UNCOMPLICATED Status: Chronic (6) Tobacco abuse Code(s): Z72.0 - TOBACCO USE Status: Chronic - Plan cont current plan of care * continue IVF and monitor CK * medication reviewed as below * symptomatic treatment * will need [facility] when medically stable. Review of Systems - Review of Systems Eyes: negative: Pain, Vision Change, Conjunctivae Inflammation, Eyelid Inflammation, Redness, Other ENT: negative: Ear Pain, Ear Discharge, Nose Pain, Nose Discharge, Nose Congestion, Mouth Pain, Mouth Swelling, Throat Pain, Throat Swelling, Other Respiratory: negative: Cough, Dry, Shortness of Breath, Hemoptysis, SOB with Excertion, Pleuritic Pain, Sputum, Wheezing Cardiovascular: negative: chest pain, palpitations, orthopnea, paroxysmal nocturnal dyspnea, edema, light headedness, other Gastrointestinal: negative: Nausea, Vomiting, Abdominal Pain, Diarrhea, Constipation, Melena, Hematochezia, Other Genitourinary: negative: Dysuria, Frequency, Incontinence, Hematuria, Retention , Other Musculoskeletal: negative: Neck Pain, Shoulder Pain, Arm Pain, Back Pain, Hand Pain, Leg Pain, Foot Pain, Other Skin: negative: Rash, Lesions, Enoch, Bruising, Other - Medications/Allergies Allergies/Adverse Reactions: Allergies Allergy/AdvReac Type Severity Reaction Status Date / Time No Known Allergies Allergy Verified 01/15/16 14:22 Medications: Current Medications Acetaminophen (Tylenol) 650 mg PO Q4H PRN PRN Reason: Headache/Fever or Pain Hydrocodone Bitart/Acetaminophen ([place] 5/325) 1 tab PO Q4H PRN PRN Reason: Moderate Pain (4-6) Al Hydroxide/Mg Hydroxide (Maalox) 30 ml PO Q6H PRN PRN Reason: Heartburn or Indigestion Artificial Tears (Tears Naturale) 0 drop EA EYE PRN PRN PRN Reason: Dry Eyes Enoxaparin Sodium (Lovenox) 40 mg SC 0900 [facility] Last Admin: 11/30/17 09:51 Dose: 40 mg Famotidine (Pepcid) 20 mg PO BID [facility] Last Admin: 11/30/17 09:51 Dose: 20 mg Guaifenesin (Robitussin Sf) 200 mg PO Q4H PRN PRN Reason: Cough Hydralazine HCl (Apresoline) 10 mg SLOW IVP Q4H PRN PRN Reason: Systolic BP > 180 Potassium Chloride/Sodium Chloride (Ns 0.9% W/ 20 Meq Kcl) 1,000 ml in 1,000 mls @ 125 mls/hr IV .Q8H [facility] Last Admin: 11/30/17 06:08 Dose: 1,000 mls Loperamide HCl (Imodium) 2 mg PO PRN PRN PRN Reason: Diarrhea/Loose Stools Loratadine (Claritin) 10 mg PO DAILYPRN PRN PRN Reason: Sinus Symptoms Lorazepam (Ativan) 1 mg PO Q4H PRN PRN Reason: Anxiety/Agitation Lorazepam (Ativan) 1 mg SLOW IVP Q4H PRN PRN Reason: Anxiety/Agitation Magnesium Hydroxide (Milk Of Magnesium) 30 ml PO DAILYPRN PRN PRN Reason: Constipation Mineral Oil/White Petrolatum (Eucerin Cream) 0 gm TOP BIDPRN PRN PRN Reason: Dry Skin Ondansetron HCl (Zofran Odt) 4 mg PO Q6H PRN PRN Reason: Nausea/Vomiting Ondansetron HCl (Zofran) 4 mg IVP Q6H PRN PRN Reason: Nausea/Vomiting Phenol (Chloraseptic [place] 180 Ml Bot) 0 ml PO PRN PRN PRN Reason: Sore Throat Senna (Senokot) 2 tab PO HSPRN PRN PRN Reason: Constipation Sodium Chloride ([place] Nasal [place] 0.65%) 0 ml EA NARE QIDPRN PRN PRN Reason: Nasal Congestion Zolpidem Tartrate (Ambien) 5 mg PO HSPRN PRN PRN Reason: Insomnia Last Admin: 11/29/17 21:26 Dose: 5 mg
[2017-11-30] MEDS: Lorazepam 1 MG TAB PO PRN ×2 (18:03→23:01)
[2017-12-01] MEDS: Lorazepam 1 MG TAB PO PRN ×2 (05:51→10:15)
[2017-12-01] MEDS: NS 0.9% w/ 20 MEQ KCL 1,000 ML/1,000 ML BAG IV SCH ×2 (05:59→16:00)
[2017-12-01] MEDS: Famotidine 20 MG TAB PO SCH (10:09)
[2017-12-01] MEDS: Enoxaparin Sodium 40 MG/0.4 ML SYRINGE SC SCH (10:09)
--- NOTE | 2017-12-01 10:22 | PDOC.PN ---
- Subjective Encounter Start Date: 12/01/17 Encounter Start Time: 08:20 Patient seen and examined. No new complaints. No overnight events - Objective Resuscitation Status: Resuscitation Status FULL:Full Resuscitation MAR Reviewed: Yes Vital Signs & Weight: Vital Signs (12 hours) Temp Pulse Resp BP Pulse Ox 12/01/17 09:55 98.3 F 80 14 101/67 97 12/01/17 04:00 98.4 F 78 16 105/66 97 12/01/17 00:00 98 F 70 16 121/72 96 Weight Weight 160 lb 14.999 oz I&O: 11/30/17 12/01/17 12/02/17 06:59 06:59 06:59 Intake Total 4620 4280 Output Total 3025 2800 Balance 1595 1480 Result Diagrams: 11/30/17 05:04 11/30/17 05:04 Phys Exam - Physical Examination Constitutional: NAD HEENT: PERRLA, moist MMs, sclera anicteric Neck: no JVD, supple Respiratory: no wheezing, no rales, no rhonchi Cardiovascular: RRR, no significant murmur, no rub Gastrointestinal: soft, non-tender, no distention, positive bowel sounds Musculoskeletal: no edema, pulses present Neurological: non-focal, normal sensation, moves all 4 limbs Lymphatic: no nodes Psychiatric: normal affect, A&O x 3 Skin: no rash, normal turgor Dx/Plan (1) Rhabdomyolysis Code(s): M62.82 - RHABDOMYOLYSIS Status: Acute (2) Hypokalemia Code(s): E87.6 - HYPOKALEMIA Status: Resolved (3) Alcohol abuse Code(s): F10.10 - ALCOHOL ABUSE, UNCOMPLICATED Status: Chronic (4) GERD (gastroesophageal reflux disease) Code(s): K21.9 - GASTRO-ESOPHAGEAL REFLUX DISEASE WITHOUT ESOPHAGITIS Status: Chronic (5) Polysubstance abuse Code(s): F19.10 - OTHER PSYCHOACTIVE SUBSTANCE ABUSE, UNCOMPLICATED Status: Chronic (6) Tobacco abuse Code(s): Z72.0 - TOBACCO USE Status: Chronic - Plan cont current plan of care * CK improving * will call [facility] tomorrow * medication reviewed as below * symptomatic treatment * repeat CK tomorrow * continue IVF. Review of Systems - Review of Systems Constitutional: negative: fever, chills, sweats, weakness, malaise, other ENT: negative: Ear Pain, Ear Discharge, Nose Pain, Nose Discharge, Nose Congestion, Mouth Pain, Mouth Swelling, Throat Pain, Throat Swelling, Other Respiratory: negative: Cough, Dry, Shortness of Breath, Hemoptysis, SOB with Excertion, Pleuritic Pain, Sputum, Wheezing Cardiovascular: negative: chest pain, palpitations, orthopnea, paroxysmal nocturnal dyspnea, edema, light headedness, other Gastrointestinal: negative: Nausea, Vomiting, Abdominal Pain, Diarrhea, Constipation, Melena, Hematochezia, Other Genitourinary: negative: Dysuria, Frequency, Incontinence, Hematuria, Retention , Other Musculoskeletal: negative: Neck Pain, Shoulder Pain, Arm Pain, Back Pain, Hand Pain, Leg Pain, Foot Pain, Other Skin: negative: Rash, Lesions, Enoch, Bruising, Other - Medications/Allergies Allergies/Adverse Reactions: Allergies Allergy/AdvReac Type Severity Reaction Status Date / Time No Known Allergies Allergy Verified 01/15/16 14:22 Medications: Current Medications Acetaminophen (Tylenol) 650 mg PO Q4H PRN PRN Reason: Headache/Fever or Pain Hydrocodone Bitart/Acetaminophen ([place] 5/325) 1 tab PO Q4H PRN PRN Reason: Moderate Pain (4-6) Al Hydroxide/Mg Hydroxide (Maalox) 30 ml PO Q6H PRN PRN Reason: Heartburn or Indigestion Artificial Tears (Tears Naturale) 0 drop EA EYE PRN PRN PRN Reason: Dry Eyes Enoxaparin Sodium (Lovenox) 40 mg SC 0900 [facility] Last Admin: 12/01/17 10:09 Dose: 40 mg Famotidine (Pepcid) 20 mg PO BID [facility] Last Admin: 12/01/17 10:09 Dose: 20 mg Guaifenesin (Robitussin Sf) 200 mg PO Q4H PRN PRN Reason: Cough Hydralazine HCl (Apresoline) 10 mg SLOW IVP Q4H PRN PRN Reason: Systolic BP > 180 Potassium Chloride/Sodium Chloride (Ns 0.9% W/ 20 Meq Kcl) 1,000 ml in 1,000 mls @ 125 mls/hr IV .Q8H [facility] Last Admin: 12/01/17 05:59 Dose: 1,000 mls Loperamide HCl (Imodium) 2 mg PO PRN PRN PRN Reason: Diarrhea/Loose Stools Loratadine (Claritin) 10 mg PO DAILYPRN PRN PRN Reason: Sinus Symptoms Lorazepam (Ativan) 1 mg PO Q4H PRN PRN Reason: Anxiety/Agitation Last Admin: 12/01/17 10:15 Dose: 1 mg Lorazepam (Ativan) 1 mg SLOW IVP Q4H PRN PRN Reason: Anxiety/Agitation Magnesium Hydroxide (Milk Of Magnesium) 30 ml PO DAILYPRN PRN PRN Reason: Constipation Mineral Oil/White Petrolatum (Eucerin Cream) 0 gm TOP BIDPRN PRN PRN Reason: Dry Skin Ondansetron HCl (Zofran Odt) 4 mg PO Q6H PRN PRN Reason: Nausea/Vomiting Last Admin: 11/30/17 18:00 Dose: 4 mg Ondansetron HCl (Zofran) 4 mg IVP Q6H PRN PRN Reason: Nausea/Vomiting Phenol (Chloraseptic [place] 180 Ml Bot) 0 ml PO PRN PRN PRN Reason: Sore Throat Senna (Senokot) 2 tab PO HSPRN PRN PRN Reason: Constipation Sodium Chloride ([place] Nasal [place] 0.65%) 0 ml EA NARE QIDPRN PRN PRN Reason: Nasal Congestion Zolpidem Tartrate (Ambien) 5 mg PO HSPRN PRN PRN Reason: Insomnia Last Admin: 11/29/17 21:26 Dose: 5 mg
[2017-12-01 19:46] VITALS: BP 120/80; TEMP 98.2
--- NOTE | 2017-12-02 07:10 | DIS ---
PRIMARY CARE PHYSICIAN: [facility] call admission. DATE OF ADMISSION: 11/29/2017 DATE OF DISCHARGE: 12/01/2017 DISCHARGE DISPOSITION: Home. PRIMARY DISCHARGE DIAGNOSES: Rhabdomyolysis; hypokalemia, corrected. SECONDARY DISCHARGE DIAGNOSES: Polysubstance abuse, gastroesophageal reflux disease, tobacco abuse, alcohol abuse. PRIMARY PROCEDURE/OPERATION: None. RADIOLOGICAL INVESTIGATION: None. SIGNIFICANT LABORATORY DATA: Hemoglobin 13.5, creatinine 0.69, CK 2580. TSH 2.97. Urine drug scree n positive for methamphetamine, amphetamine, benzodiazepine, barbiturate. DISCHARGE MEDICATIONS: Patient will follow up with primary care physician for his psychiatric medica tion. Patient is instructed to take Pepcid or Prilosec over the counter as needed basis for acid ref lux. CONTRAINDICATIONS: None. CODE STATUS: FULL CODE. INPATIENT CONSULTANTS: None. ALLERGIES: No known drug allergy. DISCHARGE PLAN: Post hospital, patient is discharged to home and patient is instructed to follow up with primary care physician or drug rehabilitation program. HOSPITAL COURSE: A 32-year-old male who was walking around [facility] randomly for several hours and after that he was having cramps in his legs. He finally decided to go to medical attention to get help. He was found with rhabdomyolysis and hypokalemia. He was hydrated with IV fluid and his abnormal gissell ctrolytes was replaced. Patient has polysubstance abuse and he was self-interested in getting psychi atric help, though he was not having any suicidal or homicidal ideation. [facility] was [facility]. We provided if necessary patient education about avoidance of polysubstance abuse and drug rehabilitation program. Main problem for this patient was, he was living in environment where everybody was surrounding him w as a drug addict and now patient decided to go away from them and that is why he is planning to go to [place] with his other family friend, where he will enroll himself in drug rehabilitation program. At this point, patient is medically stable. His CK is improving. His renal function is normal. I a dvised him to get hydrated with orally. Patient is also advised to avoid strenuous physical activity. Patient is seen and examined at bedside today. Please see my progress note from that day. Overall, patient is medically stable for discharge today.
== END 2017-12-01 19:38 | disposition home or self-care (01) | DRG 558 ==
LOC: ERS 02:35 → ERHOLD 05:04 → SURG A 08:12
PROVIDERS: ADMIT Internal Medicine; ATTEND Internal Medicine
DX: M62.82 Rhabdomyolysis (principal); E87.6 Hypokalemia; F10.20 Alcohol dependence, uncomplicated; F19.10 Other psychoactive substance abuse, uncomplicated; F31.9 Bipolar disorder, unspecified; F32.9 Major depressive disorder, single episode, unspecified; F41.9 Anxiety disorder, unspecified; F43.10 Post-traumatic stress disorder, unspecified; F90.9 Attention-deficit hyperactivity disorder, unspecified type; F17.290 Nicotine dependence, other tobacco product, uncomplicated; K21.9 Gastro-esophageal reflux disease without esophagitis
CPT/HCPCS: 36415; 36416; 80048; 80053; 80306; 80307; 81003; 81015; 82550; 84443; 85025; 93005; 96360; 96361; J1650; Q0162